=== PATIENT | female | born 1955 ===

== ENCOUNTER 2017-01-07 09:30 | Emergency (ER) | payer MEDICAID ==
[2017-01-07 09:34] VITALS: BP 140/77; PULSE 55; TEMP 97; O2SAT 95
[2017-01-07 09:35] VITALS: BMI 26.4
--- NOTE | 2017-01-07 10:49 | ED PDOC ---
HPI: General Adult Time Seen by Provider: 01/07/17 09:45 Chief Complaint (Nursing): Abdominal Pain Chief Complaint (Provider): right sided rib pain History Per: Patient History/Exam Limitations: no limitations Onset/Duration Of Symptoms: Days (x 3) Have you had recent travel within the past 21 days to any of the following countries: [place], [place], [place] or [place]?: No Additional Complaint(s): Love Agarwal is a 61 year old female, with a previous medical history of osteoporosis, who presents to the ED with complaints of right sided lower rib pain which started 3 days ago after hearing a crack while hugging a child. Patient denies any chest pain, shortness of breath or radiation of the pain. Patient states to taking pain relief medication which provided no relief. No numbness, tingles, weakness. PMD: none provided Past Medical History Reviewed: Historical Data, Nursing Documentation, Vital Signs Vital Signs: Last Vital Signs Temp 97 F L 01/07/17 09:33 Pulse 55 L 01/07/17 09:33 Resp BP 140/77 01/07/17 09:33 Pulse Ox 95 01/07/17 10:51 - Medical History PMH: Depression, HTN, Osteoporosis - Surgical History Surgical History: Cholecystectomy - Family History Family History: States: Unknown Family Hx - Social History Current smoker - smoking cessation education provided: No Alcohol: None Drugs: Denies - Home Medications Home Medications: Ambulatory Orders Medication Instructions Recorded Calcium Carbonate [Calcium] PO DAILY 04/17/14 amLODIPine [Norvasc] 2.5 mg PO DAILY 04/17/14 Naproxen [Naprosyn] 500 mg PO Q12 #14 tablet 05/11/16 - Allergies Allergies/Adverse Reactions: Allergies Allergy/AdvReac Type Severity Reaction Status Date / Time No Known Allergies Allergy Verified 01/07/17 10:08 Review of Systems Constitutional: Negative for: Weakness Cardiovascular: Negative for: Chest Pain, Palpitations, Orthopnea, Edema Respiratory: Negative for: Cough, Shortness of Breath Gastrointestinal: Negative for: Nausea, Vomiting, Abdominal Pain Genitourinary Female: Negative for: Dysuria Musculoskeletal: Positive for: Other (right sided rib pain ). Negative for: Neck Pain, Shoulder Pain, Arm Pain Skin: Negative for: Rash Neurological: Negative for: Weakness Physical Exam - Reviewed Nursing Documentation Reviewed: Yes Vital Signs Reviewed: Yes - Physical Exam Appears: Positive for: Non-toxic, No Acute Distress Head Exam: Positive for: ATRAUMATIC, NORMAL INSPECTION, NORMOCEPHALIC Skin: Positive for: Normal Color, Warm, DRY Neck: Positive for: Normal, Painless ROM, Supple Cardiovascular/Chest: Positive for: Regular Rate, Rhythm, Chest Non Tender, Other (tenderness to the right lower rib laterally mild; no deformity) Respiratory: Positive for: CNT, Normal Breath Sounds Gastrointestinal/Abdominal: Positive for: Normal Exam, Bowel Sounds, Soft. Negative for: Tenderness Back: Positive for: Normal Inspection. Negative for: L CVA Tenderness, R CVA Tenderness Extremity: Positive for: Normal ROM. Negative for: Tenderness, Pedal Edema, Deformity Neurologic/Psych: Positive for: Alert, Oriented - ECG O2 Sat by Pulse Oximetry: 95 (RA) Pulse Ox Interpretation: Normal - Radiology X-Ray: Interpreted by Me, Viewed By Me X-Ray Interpretation: No Acute Disease - Progress ED Course And Treament: 1129: Stable. AAOx3. Pain free. Tolerated PO. Fu with pcp. Medical Decision Making Medical Decision Making: Initial Impression: rib pain Initial Plan: * x-ray right ribs * toradol 15 mg IM * reevaluation Scribe Attestation: Documented by Rosa Echols, acting as a scribe for Nicholas Beyer MD. Provider Scribe Attestation: All medical record entries made by the Scribe were at my direction and personally dictated by me. I have reviewed the chart and agree that the record accurately reflects my personal performance of the history, physical exam, medical decision making, and the department course for this patient. I have also personally directed, reviewed, and agree with the discharge instructions and disposition. Disposition - Clinical Impression Clinical Impression: Rib contusion - Patient ED Disposition Is Patient to be Admitted: No Counseled Patient/Family Regarding: Studies Performed, Diagnosis, Need For Followup - Disposition Referrals: [facility] [Outside] - 01/08/17 Disposition: Routine/Home Disposition Time: 11:31 Condition: STABLE Additional Instructions: Return if not better in 3 days. Instructions: Rib Contusion (ED) Forms: [facility] (Lao) Print Language: YORUBA
--- NOTE | 2017-01-07 14:35 | RAD ---
PROCEDURE: Radiographs of the Chest and Right Ribs. HISTORY: pain COMPARISON: 05/11/2016 TECHNIQUE: Frontal radiograph of the chest and multiple oblique radiographs of the right ribs were obtained. FINDINGS: RIGHT RIBS: No fracture or focal lesion visualized. LUNGS: Clear. PLEURA: No pneumothorax or pleural fluid. CARDIOVASCULAR: Normal sized heart. No pulmonary vascular congestion. OTHER FINDINGS: None. IMPRESSION: Unremarkable radiographs of the chest and right ribs. No right rib fracture. BMD changes compared to the prior study Concordant results with the preliminary interpretation rendered by the emergency department physician procedure.
== END 2017-01-07 11:50 | disposition home or self-care (01) ==
LOC: H.ER 09:30
DX: S20.219A Contusion of unspecified front wall of thorax, initial encounter (principal); X50.9XXA Other and unspecified overexertion or strenuous movements or postures, initial encounter; Y92.89 Other specified places as the place of occurrence of the external cause; I10 Essential (primary) hypertension

== ENCOUNTER 2017-09-14 15:24 | Inpatient (IN) | payer MEDICAID, OTHER ==
[2017-09-14 15:24] VITALS: BMI 26.4
--- NOTE | 2017-09-14 17:20 | ED PDOC ---
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) - Chief Complaint Chief Complaint: Weakness, Numbness, Difficulty walking - Onset Date: 09/12/17 Onset: Days (2+ approximate) - Timing Timing: Currently Symptomatic - Location Locate right:: Upper extremity, Lower extremity - Severity of pain Maximum severity:: Moderate Severity Current: Moderate - Associated Symptoms Associated symptoms:: Numbness, other (myalgia) - Exacerbated by Exacerbated by:: Postition Change, Walking - Relieved by Relieved by:: Nothing - TPA Positive for Contraindication: Yes Reason tPA is not being Administered: >48hrs of symptoms, NIHSS <4 - Notes: Notes:: 61yo female hx HTN, DM, under rheum workup at [facility] presents c/o R sided numbness , painful joints and difficulty ambulating, states her R leg/foot has lost power. Denies headache, change in speech, or falls, admits to intermittent blurry vision for several weeks. Does not take ASA daily. Rheum put her on ? medications last month, states takes 6pills/wk. NIHSS Stroke Scale - Date/Time Evaluation Performed Date Performed: 09/14/17 Time Performed: 17:05 When Was NIHSS Performed: Baseline - How Severe is the Stroke Level of Consciousness: 0=Alert LOC to Questions: 0=Both comments correct LOC to commands: 0=Obeys both correctly Best Gaze: 0=Normal Visual: 0=No visual loss Facial: 0=Normal Motor Arm - Left: 0=No drift Motor Arm - Right: 1=Drift noted before 10 sec Motor Leg - Left: 0=No drift Motor Leg - Right: 1=Drift before 5 sec Limb Ataxia: 1=Present Upper or Lower Sensory: 0=Normal Best Language: 0=No aphasia Dysarthia: 0=Normal articulation Extinction & Inattention (Neglect): 0=Normal, no object Score: 3 rTPA Inclusion/Exclusion - Refusal of Treatment Patient Refused Treatment: No - Inclusion Criteria for Altepase Patient is 18 years or Older: Yes The Clinical Diagnosis of Ischemic Stroke That is Causing a Potentially Disabling Neurological Deficit: No Time of Onset is Well Established to be Less Than 270 Minute Before Treatment Would Begin: No Risk/Benefit Discussed With Patient/Family Member Present: No - Exclusion Criteria for Altepase Uncontrolled Hypertension at Time of Treatment (Systolic BP above 185 or Diastolic BP above 110 mmHg): No - Warning to TPA With Conditions Following Conditions Weighed Against Anticipated Benefit: Yes Condition: Stroke Serevity Too Mild Past Medical History Reviewed: Historical Data, Nursing Documentation, Vital Signs Vital Signs: Last Vital Signs Temp 97.7 F 09/14/17 16:07 Pulse 68 09/14/17 16:07 Resp 18 09/14/17 16:07 BP 150/74 09/14/17 16:07 Pulse Ox 99 09/14/17 16:07 - Medical History PMH: Depression, Diabetes, HTN, Osteoporosis Other PMH: per paperwork from [facility] +JENNIE, +rheumatoid disease, +elev ESR - Surgical History Surgical History: Cholecystectomy Other surgeries: L arm accident - Family History Family History: States: Unknown Family Hx - Social History Current smoker - smoking cessation education provided: No Alcohol: None - Home Medications Home Medications: Ambulatory Orders Medication Instructions Recorded Dicyclomine [Bentyl] 10 mg PO Q8 PRN 09/14/17 Hydroxychloroquine Sulfate 200 mg PO Q12 09/14/17 [Plaquenil] Methotrexate [Methotrexate] 6 tab PO MO 09/14/17 Omeprazole [Omeprazole] 40 mg PO DAILY 09/14/17 Valsartan/Hydrochlorothiazide 1 tab PO DAILY 09/14/17 [Diovan Hct 160-25 mg Tablet] amLODIPine [Norvasc] 10 mg PO DAILY 09/14/17 metFORMIN [glucOPHAGE] 500 mg PO BID 09/14/17 - Allergies Allergies/Adverse Reactions: Allergies Allergy/AdvReac Type Severity Reaction Status Date / Time No Known Allergies Allergy Verified 01/07/17 10:08 Review of Systems ROS Statement: Except As Marked, All Systems Reviewed And Found Negative Constitutional: Negative for: Fever, Chills Cardiovascular: Negative for: Chest Pain, Palpitations Respiratory: Negative for: Cough, Shortness of Breath Gastrointestinal: Negative for: Nausea, Vomiting Genitourinary Female: Negative for: Dysuria, Frequency Musculoskeletal: Positive for: Shoulder Pain, Arm Pain, Back Pain, Hand Pain, Leg Pain, Foot Pain. Negative for: Neck Pain Skin: Negative for: Rash, Lesions, Jaundice Neurological: Positive for: Weakness, Numbness, Incoordination, Dizziness. Negative for: Change in Speech, Altered Mental Status, Headache Psych: Positive for: Anxiety, Depression. Negative for: Suicidal ideation Physical Exam - Reviewed Nursing Documentation Reviewed: Yes Vital Signs Reviewed: Yes - Physical Exam Appears: Positive for: Well, Non-toxic, No Acute Distress Head Exam: Positive for: ATRAUMATIC, NORMAL INSPECTION, NORMOCEPHALIC Skin: Positive for: Normal Color, Warm, DRY Eye Exam: Positive for: EOMI, Normal appearance, PERRL ENT: Positive for: Normal ENT Inspection Neck: Positive for: Normal, Painless ROM Cardiovascular/Chest: Positive for: Regular Rate, Rhythm Respiratory: Positive for: CNT, Normal Breath Sounds Gastrointestinal/Abdominal: Positive for: Normal Exam, Bowel Sounds, Soft Back: Positive for: Normal Inspection Extremity: Positive for: Normal ROM Neurologic/Psych: Positive for: Alert, Oriented, Motor/Sensory Deficits (R side mild weakness upper ext 4/5 lower ext 4/5, RUE chronic weakness/tendon contracture digits 2/3/4) - Laboratory Results Result Diagrams: 09/15/17 04:15 09/15/17 04:15 - ECG ECG: Positive for: Interpreted By [place] ECG Rhythm: Positive for: Sinus Bradycardia, Nonspecific Changes Rate: 58 O2 Sat by Pulse Oximetry: 99 Pulse Ox Interpretation: Normal Medical Decision Making Medical Decision Making: not a code stroke candidate given symptoms >2 days +risk factors given DM, HTN, rheum disease CT Accession No. : [id number] Patient Name / ID : ALDAIR NETTLES / [id number] Exam Date : 09/14/2017 17:32:50 ( Approved ) Study Comment : Sex / Age : F / 61Y Creator : SOLEDAD CHU Dictator : Chief Investment Officer : A R Specialist : SOLEDAD CHU Approver2 : Report Date : 09/14/2017 18:24:00 My Comment : [facility] Division of Radiology [address] [place] [address] Tel. no. Patient Name: THO JACKSON Pt. Address: [address] [place] [address] Rec #: [id number] [place] [address]: Haroon Nieves DO, III Pt CELL Order Location: [facility] : 1955 Female Age: 61 Order #: [id number] Reason for exam: R side weakness, pain CT Scan HEAD W/O CONTRAST Exam Date: 09/14/17 This imaging exam was performed at [facility] EXAM: CT Head Without Intravenous Contrast EXAM DATE/TIME: 09/14/2017 5:09 PM CLINICAL HISTORY: 61 years old, female; Signs and symptoms; Weakness, extremity; Right; Additional info: R side weakness, pain TECHNIQUE: Axial computed tomography images of the head/brain without intravenous contrast. All CT scans at this facility use one or more dose reduction techniques, viz.: automated exposure control; ma/kV adjustment per patient size (including targeted exams where dose is matched to indication; i.e. head); or iterative reconstruction technique. Coronal and sagittal reformatted images were created and reviewed. COMPARISON: There are no prior studies for comparison. FINDINGS: Brain: Ventricles are normal in size and configuration. There is no midline shift. There are no intra-axial or extra-axial mass lesions or areas of hemorrhage. There are no abnormal fluid collections. Rossi-white differentiation is maintained. Ventricles: See above. Bones: Cranial vault is intact. Soft tissues: unremarkable Sinuses: There is no acute sinusitis. Ears and mastoids: Middle ears and mastoids are unremarkable Orbits: There are no acute orbital abnormalities. 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
[2017-09-14 17:31] LABS: BASO % 0.6 % (0.0-2.0); EOS % 0.3 % (0.0-4.0); HEMOGLOBIN 11.6 g/dL (12.0-16.0); LYMPH # 1.9 K/uL (1.0-4.3); LYMPH % 34.5 % (20.0-40.0); MEAN CELL VOLUME 70.5 fl (81.0-99.0); MEAN CORPUSCULAR HEMOGLOBIN 22.1 pg (27.0-31.0); MEAN CORPUSCULAR HGB CONC 31.4 g/dL (33.0-37.0); MEAN PLATELET VOLUME 9.7 fl (7.2-11.7); MONO # 0.4 K/uL (0.0-0.8); MONO % 7.4 % (0.0-10.0); NEUT # 3.1 K/uL (1.8-7.0); NEUT % 57.2 % (50.0-75.0); NRBC % 1.1 % (0.0-0.0); RBC 5.23 Mil/uL (3.80-5.20); RED CELL DISTRIBUTION WIDTH 16.5 % (11.5-14.5); WHITE BLOOD COUNT 5.5 K/uL (4.8-10.8)
[2017-09-14 17:53] LABS: PARTIAL THROMBOPLASTIN TIME 24.5 Seconds (25.6-37.1); PROTHROMBIN TIME 11.3 Seconds (9.8-13.1)
[2017-09-14 18:04] LABS: ALB/GLOB RATIO 1.3 (1.0-2.1); ALBUMIN 4.5 g/dL (3.5-5.0); ALT/SGPT 34 U/L (9-52); AST/SGOT 26 U/L (14-36); BLOOD UREA NITROGEN 19 mg/dl (7-17); CALCIUM 10.1 mg/dL (8.4-10.2); GFR AFRICAN-AMERICAN > 60; GFR NON-AFRICAN AMERICAN > 60; HDL CHOLESTEROL 71 MG/DL (30-70)
[2017-09-14 18:15] LABS: LDL CHOLESTEROL 67 mg/dL (0-129)
--- NOTE | 2017-09-14 18:25 | CT ---
EXAM: CT Head Without Intravenous Contrast EXAM DATE/TIME: 09/14/2017 5:09 PM CLINICAL HISTORY: 61 years old, female; Signs and symptoms; Weakness, extremity; Right; Additional info: R side weakness, pain TECHNIQUE: Axial computed tomography images of the head/brain without intravenous contrast. All CT scans at this facility use one or more dose reduction techniques, viz.: automated exposure control; ma/kV adjustment per patient size (including targeted exams where dose is matched to indication; i.e. head); or iterative reconstruction technique. Coronal and sagittal reformatted images were created and reviewed. COMPARISON: There are no prior studies for comparison. FINDINGS: Brain: Ventricles are normal in size and configuration. There is no midline shift. There are no intra-axial or extra-axial mass lesions or areas of hemorrhage. There are no abnormal fluid collections. Rossi-white differentiation is maintained. Ventricles: See above. Bones: Cranial vault is intact. Soft tissues: unremarkable Sinuses: There is no acute sinusitis. Ears and mastoids: Middle ears and mastoids are unremarkable Orbits: There are no acute orbital abnormalities. There is an old right lamina papyracea fracture IMPRESSION: No acute intracranial abnormality
[2017-09-14] MEDS: Sodium Chloride 0.9% 1,000 ML IV SCH (19:30)
--- NOTE | 2017-09-14 20:13 | CP.PCM.HP ---
History of Present Illness - History of Present Illness History of Present Illness: 61 yo female with history of DM2, HTN and RA came in complaining of pain, numbness and weakness of the right leg since 3 weeks ago. Denied trauma or injury. Denied headache or slurring of speech. Present on Admission - Present on Admission Any Indicators Present on Admission: No History of DVT/PE: No History of Uncontrolled Diabetes: No Urinary Catheter: No Decubitus Ulcer Present: No Review of Systems - Review of Systems All systems: reviewed and no additional remarkable complaints except (aside from those mentioned above, 14 point system review were negative by me) Past Patient History - Tetanus Immunizations Tetanus Immunization: Unknown - Past Social History Smoking Status: Never Smoked Alcohol: None Drugs: Denies - CARDIAC Hx Hypertension: Yes - MUSCULOSKELETAL/RHEUMATOLOGICAL Hx Osteoporosis: Yes - PSYCHIATRIC Hx Depression: Yes - SURGICAL HISTORY Hx Cholecystectomy: Yes - ANESTHESIA Hx Anesthesia: Yes Hx Anesthesia Reactions: No Meds Allergies/Adverse Reactions: Allergies Allergy/AdvReac Type Severity Reaction Status Date / Time No Known Allergies Allergy Verified 01/07/17 10:08 Physical Exam - Constitutional Appears: No Acute Distress - Head Exam Head Exam: ATRAUMATIC - Eye Exam Eye Exam: absent: Scleral icterus - ENT Exam ENT Exam: Mucous Membranes Moist - Neck Exam Neck exam: Negative for: Meningismus - Respiratory Exam Respiratory Exam: absent: Rales, Rhonchi, Wheezes, Respiratory Distress - Cardiovascular Exam Cardiovascular Exam: REGULAR RHYTHM, +S1, +S2 - GI/Abdominal Exam GI & Abdominal Exam: Soft. absent: Tenderness - Rectal Exam Rectal Exam: Deferred - Extremities Exam Extremities exam: Negative for: calf tenderness, pedal edema - Back Exam Back exam: absent: tenderness - Neurological Exam Neurological exam: Alert, Oriented x3 - Psychiatric Exam Psychiatric exam: Normal Affect - Skin Skin Exam: Dry, Intact Results - Vital Signs Recent Vital Signs: Last Vital Signs Temp 98 F 09/14/17 19:29 Pulse 58 L 09/14/17 19:47 Resp 18 09/14/17 19:29 BP 156/76 H 09/14/17 19:29 Pulse Ox 99 09/14/17 19:47 - Labs Result Diagrams: 09/14/17 17:20 09/14/17 17:20 Labs: Laboratory Results - last 24 hr 09/14/17 09/14/17 09/14/17 17:20 17:20 17:20 WBC 5.5 RBC 5.23 H Hgb 11.6 L Hct 36.9 MCV 70.5 L MCH 22.1 L MCHC 31.4 L RDW 16.5 H Plt Count 221 MPV 9.7 Neut % (Auto) 57.2 Lymph % (Auto) 34.5 [place] % (Auto) 7.4 Eos % (Auto) 0.3 Baso % (Auto) 0.6 Neut # (Auto) 3.1 Lymph # (Auto) 1.9 [place] # (Auto) 0.4 Eos # (Auto) 0.0 Baso # (Auto) 0.0 ESR 17 PT 11.3 INR 1.0 APTT 24.5 L Sodium 145 Potassium 3.7 Chloride 102 Carbon Dioxide 27 Anion Gap 20 BUN 19 H Creatinine 0.9 Est GFR ( Amer) > 60 Est GFR (Non-Af Amer) > 60 Random Glucose 129 H Calcium 10.1 Total Bilirubin 0.6 AST 26 ALT 34 Alkaline Phosphatase 45 Troponin I < 0.0120 Total Protein 8.0 Albumin 4.5 Globulin 3.5 Albumin/Globulin Ratio 1.3 Triglycerides 64 Cholesterol 171 LDL Cholesterol Direct 67 HDL Cholesterol 71 H Assessment & Plan - Assessment and Plan (Free Text) Assessment: 61 yo female with history of DM2, HTN and RA came in complaining of pain, numbness and weakness of the right leg since 3 weeks ago. Denied trauma or injury. Denied headache or slurring of speech. 1. Right Lower extremity weakness denied bladder or rectal incontinence place on observation in telemetry CT scan of head: negative MRI of LS spine 2. DM2 accuchek ACHS with low Lispro coverage Metformin 500mg PO BID HgA1C, BMP in am 3. RA continue Hydroxychloroquine and Methotrexate 4. HTN BP stable continue Amlodipine and Valsartan/HCTZ
[2017-09-15 05:28] LABS: BASO % 0.9 % (0.0-2.0); EOS % 0.7 % (0.0-4.0); HEMOGLOBIN 10.1 g/dL (12.0-16.0); LYMPH # 2.1 K/uL (1.0-4.3); LYMPH % 54.5 % (20.0-40.0); MEAN CELL VOLUME 70.6 fl (81.0-99.0); MEAN CORPUSCULAR HEMOGLOBIN 22.4 pg (27.0-31.0); MEAN CORPUSCULAR HGB CONC 31.7 g/dL (33.0-37.0); MEAN PLATELET VOLUME 9.5 fl (7.2-11.7); MONO # 0.4 K/uL (0.0-0.8); MONO % 11.7 % (0.0-10.0); NEUT # 1.2 K/uL (1.8-7.0); NEUT % 32.2 % (50.0-75.0); NRBC % 0.4 % (0.0-0.0); RBC 4.5 Mil/uL (3.80-5.20); RED CELL DISTRIBUTION WIDTH 16.5 % (11.5-14.5); WHITE BLOOD COUNT 3.8 K/uL (4.8-10.8)
[2017-09-15 05:40] LABS: BLOOD UREA NITROGEN 18 mg/dl (7-17); GFR AFRICAN-AMERICAN > 60; GFR NON-AFRICAN AMERICAN > 60
[2017-09-15] MEDS ORDERED: Pneumococcal 23-Valent Vaccine IM ONE (06:00)
--- NOTE | 2017-09-15 08:12 | RAD ---
HISTORY: Code Stroke COMPARISON: Chest radiograph with right ribs 12/30/2016. FINDINGS: LUNGS: No active pulmonary disease. PLEURA: No significant pleural effusion identified, no pneumothorax apparent. CARDIOVASCULAR: Mild cardiomegaly versus technical magnification with the latter favored given frontal technique. OSSEOUS STRUCTURES: No significant abnormalities. VISUALIZED UPPER ABDOMEN: Normal. OTHER FINDINGS: None. IMPRESSION: No interval acute cardiopulmonary disease appreciated.
[2017-09-15] MEDS: Pantoprazole 40 mg EC Tab PO SCH (08:37)
[2017-09-15] MEDS: Enoxaparin 40 mg Syringe SC SCH (08:39)
--- NOTE | 2017-09-15 09:26 | CARD ---
APPROVED REPORT EKG Measurement Heart [id number] <Conclusion> Sinus bradycardia Otherwise normal ECG
--- NOTE | 2017-09-15 12:25 | MRI ---
PROCEDURE: MR LUMBAR SPINE WITHOUT CONTRAST HISTORY: weakness and pain on right LE COMPARISON: None available. TECHNIQUE: Multiecho multiplanar sequences were performed through the lumbar spine without the use of intravenous contrast. FINDINGS: Normal curvature. Schmorl's nodes are identified depression the upper endplates at L2 through L5 vertebral bodies with likely underlying chronic minimal compression fractures affecting the same vertebral bodies which are lower in height than L1 in all cases. No suspicious matter signal changes are related however. Diffuse intervertebral disc desiccation is appreciated with preserved disc heights noted. Conus medullaris terminates at L1, normal in intrinsic signal with visualized prevertebral paraspinal soft tissues diffusely unremarkable. Overall, the central canal appears widely capacious. T12-L1: No disc herniation, spinal canal stenosis or neural foraminal narrowing. Symmetric facet joint degenerative change minimally encroaches the bilateral neural foramina and lateral recesses without significant stenosis. L1-2: No disc herniation identified or generalized central canal or neural foraminal stenosis. However, minimal disc bulging is appreciated as well as facet joint arthropathy encroaching the bilateral lateral recesses somewhat. L2-3: No disc herniation identified or generalized central canal or neural foraminal stenosis. However, minimal disc bulging is appreciated as well as facet joint arthropathy encroaching the bilateral lateral recesses somewhat. L3-4: No disc herniation identified or generalized central canal or neural foraminal stenosis. However, minimal disc bulging is appreciated as well as facet joint arthropathy encroaching the bilateral lateral recesses somewhat. L4-5: No disc herniation identified or generalized central canal or neural foraminal stenosis. However, minimal disc bulging is appreciated as well as facet joint arthropathy encroaching the bilateral lateral recesses somewhat. L5-S1: No disc herniation, spinal canal stenosis or neural foraminal narrowing. Limited facet joint degenerative changes are identified. OTHER FINDINGS: None. IMPRESSION: Patient benefits from a widely capacious central canal with no generalized central canal stenosis appreciated throughout the exam although multilevel facet joint degenerative arthropathy is diffuse a combines with limited disc bulging encroaching the bilateral lateral recesses with the exception of L5-S1 where no significant encroachment occurs.
--- NOTE | 2017-09-15 12:45 | CP.PCM.PN ---
Subjective - Date & Time of Evaluation Date of Evaluation: 09/15/17 Time of Evaluation: 11:30 - Subjective Subjective: Pt has RUE and RLE weakness no cognitive deficit denies headache no visual change no CP no SOB no abd pain Objective - Vital Signs/Intake and Output Vital Signs (last 24 hours): Temp Pulse Resp BP Pulse Ox 98 F 50 L 20 156/78 H 96 09/15/17 12:00 09/15/17 12:00 09/15/17 12:00 09/15/17 12:00 09/15/17 12:00 - Medications Medications: Current Medications Amlodipine Besylate (Norvasc) 10 mg PO DAILY [facility] Last Admin: 09/15/17 08:37 Dose: 10 mg Dicyclomine HCl (Bentyl) 10 mg PO Q8 PRN PRN Reason: abdominal cramps Docusate Sodium (Colace) 100 mg PO BID PRN PRN Reason: Constipation Enoxaparin Sodium (Lovenox) 40 mg SC DAILY [facility] PRN Reason: Protocol Last Admin: 09/15/17 08:39 Dose: 40 mg Hydroxychloroquine Sulfate (Plaquenil) 200 mg PO Q12 [facility] PRN Reason: Protocol Last Admin: 09/15/17 08:37 Dose: 200 mg Sodium Chloride (Sodium Chloride 0.9%) 1,000 mls @ 100 mls/hr IV .Q10H [facility] Last Admin: 09/14/17 19:30 Dose: 100 mls/hr Metformin HCl (Glucophage) 500 mg PO BID [facility] Last Admin: 09/15/17 08:36 Dose: 500 mg Methotrexate (Methotrexate) 6 mg PO MO [facility] PRN Reason: Protocol Pantoprazole Sodium (Protonix Ec Tab) 40 mg PO DAILY [facility] Last Admin: 09/15/17 08:37 Dose: 40 mg - Labs Labs: 09/15/17 04:15 09/15/17 04:15 PT 11.3 Seconds (9.8-13.1) 09/14/17 17:20 INR 1.0 (0.9-1.2) 09/14/17 17:20 APTT 24.5 Seconds (25.6-37.1) L 09/14/17 17:20 - Constitutional Appears: Non-toxic, No Acute Distress - Head Exam Head Exam: NORMAL INSPECTION, NORMOCEPHALIC - Eye Exam Eye Exam: EOMI, Normal appearance Pupil Exam: NORMAL ACCOMODATION - ENT Exam ENT Exam: Mucous Membranes Moist, Normal External Ear Exam - Neck Exam Neck Exam: Full ROM. absent: Meningismus - Respiratory Exam Respiratory Exam: NORMAL BREATHING PATTERN. absent: Respiratory Distress - Cardiovascular Exam Cardiovascular Exam: REGULAR RHYTHM, +S1, +S2 - GI/Abdominal Exam GI & Abdominal Exam: Soft, Normal Bowel Sounds. absent: Tenderness - Extremities Exam Extremities Exam: Full ROM, Normal Capillary Refill. absent: Calf Tenderness, Pedal Edema - Back Exam Back Exam: Full ROM. absent: CVA tenderness (L), CVA tenderness (R) - Neurological Exam Neurological Exam: Alert, Awake, Oriented x3 Neuro motor strength exam: Left Upper Extremity: 5, Right Upper Extremity: 3, Left Lower Extremity: 5, Right Lower Extremity: 3 - Psychiatric Exam Psychiatric exam: Normal Affect, Normal Mood - Skin Skin Exam: Dry, Normal Color, Warm Assessment and Plan - Assessment and Plan (Free Text) Assessment: 61 yo female with history of DM2, HTN and RA came in complaining of right lower ext weakness x 3 days. Hx of right knee pain for many months but weakness is new. Denied headache or slurring of speech. 1. Right Lower extremity weakness r/o Acute CVA start ASA 325 mg daily LDL : 60 , no statin DVT proph with Lovenox MRI of Brain Carotid Sono Doppler US of LE Neurology consulted- discussed case with Dr Abreu - rec CTA of Head and Neck PT/OT consult 2. DM2 accuchek ACHS with low Lispro coverage d/c Metformin as pt will need contrast 3. RA continue Hydroxychloroquine and Methotrexate 4. HTN BP stable continue Amlodipine and Valsartan/HCTZ DVT proph: Lovenox
[2017-09-15 12:51] LABS: HDL CHOLESTEROL 51 MG/DL (30-70)
--- NOTE | 2017-09-15 12:56 | CP.PCM.CON ---
History of Present Illness - History of Present Illness History of Present Illness: 61 yr old woman with pmh of DM, HTN, currently being evaluated by rheumatology at [facility], who is presenting with right sided numbness and right foot weakness for over 24 hours presenting to [facility]. she complains of R sided numbness, painful joints and difficulty ambulating, states her R leg/foot has lost power. Denies headache, change in speech, or falls, admits to intermittent blurry vision for several weeks. Does not take ASA daily. Rheum put her on ?medications last month, states takes 6pills/wk. on exam: aaox3. pupils 3mm-2mm with light. EOMI. 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 There is also a mild left facial droop. Speech is fluent she can name and repeat. Gait is hemiparetic, favors the left leg, but no ataxia. Past Patient History - Tetanus Immunizations Tetanus Immunization: Unknown - Past Medical History & Family History Past Medical History?: Yes - Past Social History Smoking Status: Former Smoker - CARDIAC Hx Hypertension: Yes - PULMONARY Hx Respiratory Disorders: No - NEUROLOGICAL Hx Neurological Disorder: No - HEENT Hx HEENT Problems: No - RENAL Hx Chronic Kidney Disease: No - ENDOCRINE/METABOLIC Hx Diabetes Mellitus Type 2: Yes - MUSCULOSKELETAL/RHEUMATOLOGICAL Hx Arthritis: Yes Hx Falls: No Hx Osteoporosis: Yes - PSYCHIATRIC Hx Depression: Yes Hx Substance Use: No - SURGICAL HISTORY Hx Cholecystectomy: Yes - ANESTHESIA Hx Anesthesia: Yes Hx Anesthesia Reactions: No Meds Allergies/Adverse Reactions: Allergies Allergy/AdvReac Type Severity Reaction Status Date / Time No Known Allergies Allergy Verified 01/07/17 10:08 - Medications Medications: Current Medications Amlodipine Besylate (Norvasc) 10 mg PO DAILY [facility] Last Admin: 09/15/17 08:37 Dose: 10 mg Dicyclomine HCl (Bentyl) 10 mg PO Q8 PRN PRN Reason: abdominal cramps Docusate Sodium (Colace) 100 mg PO BID PRN PRN Reason: Constipation Enoxaparin Sodium (Lovenox) 40 mg SC DAILY [facility] PRN Reason: Protocol Last Admin: 09/15/17 08:39 Dose: 40 mg Hydroxychloroquine Sulfate (Plaquenil) 200 mg PO Q12 [facility] PRN Reason: Protocol Last Admin: 09/15/17 08:37 Dose: 200 mg Sodium Chloride (Sodium Chloride 0.9%) 1,000 mls @ 100 mls/hr IV .Q10H [facility] Last Admin: 09/14/17 19:30 Dose: 100 mls/hr Metformin HCl (Glucophage) 500 mg PO BID [facility] Last Admin: 09/15/17 08:36 Dose: 500 mg Methotrexate (Methotrexate) 6 mg PO MO [facility] PRN Reason: Protocol Pantoprazole Sodium (Protonix Ec Tab) 40 mg PO DAILY [facility] Last Admin: 09/15/17 08:37 Dose: 40 mg Results - Vital Signs Recent Vital Signs: Last Vital Signs Temp 98 F 09/15/17 12:00 Pulse 50 L 09/15/17 12:00 Resp 20 09/15/17 12:00 BP 156/78 H 09/15/17 12:00 Pulse Ox 96 09/15/17 12:00 - Labs Result Diagrams: 09/15/17 04:15 09/15/17 04:15 Labs: Laboratory Results - last 24 hr 09/14/17 09/14/17 09/14/17 17:20 17:20 17:20 WBC 5.5 RBC 5.23 H Hgb 11.6 L Hct 36.9 MCV 70.5 L MCH 22.1 L MCHC 31.4 L RDW 16.5 H Plt Count 221 MPV 9.7 Neut % (Auto) 57.2 Lymph % (Auto) 34.5 [place] % (Auto) 7.4 Eos % (Auto) 0.3 Baso % (Auto) 0.6 Neut # (Auto) 3.1 Lymph # (Auto) 1.9 [place] # (Auto) 0.4 Eos # (Auto) 0.0 Baso # (Auto) 0.0 ESR 17 PT INR APTT Sodium 145 Potassium 3.7 Chloride 102 Carbon Dioxide 27 Anion Gap 20 BUN 19 H Creatinine 0.9 Est GFR ( Amer) > 60 Est GFR (Non-Af Amer) > 60 POC Glucose (mg/dL) Random Glucose 129 H Hemoglobin A1c 5.9 Calcium 10.1 Total Bilirubin 0.6 AST 26 ALT 34 Alkaline Phosphatase 45 Troponin I < 0.0120 Total Protein 8.0 Albumin 4.5 Globulin 3.5 Albumin/Globulin Ratio 1.3 Triglycerides 64 Cholesterol 171 LDL Cholesterol Direct 67 HDL Cholesterol 71 H Blood Type Blood Type Confirm Antibody Screen BBK History Checked 09/14/17 09/14/17 09/14/17 17:20 17:33 21:32 WBC RBC Hgb Hct MCV MCH MCHC RDW Plt Count MPV Neut % (Auto) Lymph % (Auto) [place] % (Auto) Eos % (Auto) Baso % (Auto) Neut # (Auto) Lymph # (Auto) [place] # (Auto) Eos # (Auto) Baso # (Auto) ESR PT 11.3 INR 1.0 APTT 24.5 L Sodium Potassium Chloride Carbon Dioxide Anion Gap BUN Creatinine Est GFR ( Amer) Est GFR (Non-Af Amer) POC Glucose (mg/dL) 100 Random Glucose Hemoglobin A1c Calcium Total Bilirubin AST ALT Alkaline Phosphatase Troponin I Total Protein Albumin Globulin Albumin/Globulin Ratio Triglycerides Cholesterol LDL Cholesterol Direct HDL Cholesterol Blood Type A POSITIVE Blood Type Confirm Antibody Screen Negative BBK History Checked No verified bt 09/14/17 09/14/17 09/15/17 22:39 23:00 04:15 WBC 3.8 L RBC 4.50 Hgb 10.1 L Hct 31.8 L MCV 70.6 L MCH 22.4 L MCHC 31.7 L RDW 16.5 H Plt Count 201 MPV 9.5 Neut % (Auto) 32.2 L Lymph % (Auto) 54.5 H [place] % (Auto) 11.7 H Eos % (Auto) 0.7 Baso % (Auto) 0.9 Neut # (Auto) 1.2 L Lymph # (Auto) 2.1 [place] # (Auto) 0.4 Eos # (Auto) 0.0 Baso # (Auto) 0.0 ESR PT INR APTT Sodium Potassium Chloride Carbon Dioxide Anion Gap BUN Creatinine Est GFR ( Amer) Est GFR (Non-Af Amer) POC Glucose (mg/dL) 94 Random Glucose Hemoglobin A1c Calcium Total Bilirubin AST ALT Alkaline Phosphatase Troponin I Total Protein Albumin Globulin Albumin/Globulin Ratio Triglycerides Cholesterol LDL Cholesterol Direct HDL Cholesterol Blood Type Blood Type Confirm A POSITIVE Antibody Screen BBK History Checked 09/15/17 09/15/17 04:15 05:15 WBC RBC Hgb Hct MCV MCH MCHC RDW Plt Count MPV Neut % (Auto) Lymph % (Auto) [place] % (Auto) Eos % (Auto) Baso % (Auto) Neut # (Auto) Lymph # (Auto) [place] # (Auto) Eos # (Auto) Baso # (Auto) ESR PT INR APTT Sodium 141 Potassium 4.0 Chloride 104 Carbon Dioxide 24 Anion Gap 17 BUN 18 H Creatinine 0.7 Est GFR ( Amer) > 60 Est GFR (Non-Af Amer) > 60 POC Glucose (mg/dL) 140 H Random Glucose 101 Hemoglobin A1c Calcium 9.0 Total Bilirubin AST ALT Alkaline Phosphatase Troponin I Total Protein Albumin Globulin Albumin/Globulin Ratio Triglycerides Cholesterol LDL Cholesterol Direct HDL Cholesterol Blood Type Blood Type Confirm Antibody Screen BBK History Checked - Imaging and Cardiology CT scan - head Status: Image reviewed by me, Report reviewed by me (Normal ct head no old strokes no hemorrhages. ) Assessment & Plan - Assessment and Plan (Free Text) Assessment: 61 yr old woman with baseline autoimmune disease, who may be having new ischemic process. PlaN: 1. MRI Brain without contrast 2. CTA 3. ECHo 4. Doppler already completed 5. lipid profile 6. PT 7. aspirin [address] Abreu.
[2017-09-15] MEDS ORDERED: Iodixanol 320 MG/ML 100 ML BOTTLE IV ONE (13:00)
[2017-09-15] MEDS ORDERED: Sodium Chloride 0.9% 100 ML ONE (13:00)
[2017-09-15 13:02] LABS: LDL CHOLESTEROL 60 mg/dL (0-129)
[2017-09-15] MEDS: Sodium Chloride 0.9% 1,000 ML IV SCH ×2 (13:30→14:35)
--- NOTE | 2017-09-15 13:46 | CARD ---
APPROVED REPORT EXAM: Two-dimensional and M-mode echocardiogram with Doppler and color Doppler. Other Information Quality : GoodRhythm : Bradycardia INDICATION CVA/TIA 2D DIMENSIONS IVSd1.25 (0.7-1.1cm)LVDd4.54 (3.9-5.9cm) LVOT Diameter1.99 (1.8-2.4cm)PWd1.08 (0.7-1.1cm) IVSs1.80 (0.8-1.2cm)LVDs2.92 (2.5-4.0cm) FS (%) 35.7 %PWs1.20 (0.8-1.2cm) M-Mode DIMENSIONS Left Atrium (MM)4.50 (2.5-4.0cm)IVSd0.80 (0.7-1.1cm) Aortic Root3.37 (2.2-3.7cm)LVDd5.92 (4.0-5.6cm) Aortic Cusp Exc.2.06 (1.5-2.0cm)PWd1.08 (0.7-1.1cm) IVSs1.29 cmFS (%) 40 % LVDs3.53 (2.0-3.8cm)PWs1.83 cm Mitral Valve MV E Iiruoaya38.7cm/sMV DECEL [id number] A Yajeseqy75.4cm/s MV FUM88mdC/A ratio1.2MVA (PHT)3.21cm2 TDI Lateral E' Peak V11.98cm/sMedial E' Peak V8.07cm/sE/Lateral E'6.7 E/Medial E'10.0 Pulmonary Valve PV Peak Ayqorwho04.1cm/s LEFT VENTRICLE The left ventricle is normal size. There is normal left ventricular wall thickness. Left ventricle systolic function is normal. The Ejection Fraction is 60-65%. There is normal LV segmental wall motion. Transmitral Doppler flow pattern is Grade I-abnormal relaxation pattern. RIGHT VENTRICLE The right ventricle is normal size. There is normal right ventricular wall thickness. The right ventricular systolic function is normal. ATRIA The left atrium size is normal. The right atrium size is normal. AORTIC VALVE The aortic valve is normal in structure. No aortic regurgitation is present. There is no aortic valvular stenosis. MITRAL VALVE The mitral valve is normal in structure. There is no evidence of mitral valve prolapse. There is no mitral valve stenosis. There is no mitral valve regurgitation noted. TRICUSPID VALVE The tricuspid valve is normal in structure. There is no tricuspid valve regurgitation noted. PULMONIC VALVE The pulmonary valve is normal in structure. There is no pulmonic valvular regurgitation. GREAT VESSELS The aortic root is normal in size. The IVC is normal in size and collapses >50% with inspiration. PERICARDIAL EFFUSION The pericardium appears normal. <Conclusion> The left ventricle is normal size. There is normal left ventricular wall thickness. There is normal LV segmental wall motion. Left ventricle systolic function is normal. The Ejection Fraction is 60-65%. Transmitral Doppler flow pattern is Grade I-abnormal relaxation pattern.
--- NOTE | 2017-09-15 14:00 | US ---
PROCEDURE: Duplex ultrasound of the carotid and vertebral arteries. HISTORY: CVA COMPARISON: None available. TECHNIQUE: Grayscale and duplex Doppler evaluation of the cervical carotid and vertebral arteries were performed. The common carotid, carotid bifurcations and cervical ICA and proximal ECA were evaluated. The vertebral arteries were evaluated for gross patency and direction. FINDINGS: RIGHT CAROTID ARTERIES: Common Carotid Artery: Intimal thickening is present Maximal flow velocity of 80.7 cm/s. Carotid Bifurcation: Normal. Internal Carotid Artery:Heterogeneous plaque formation. Maximal flow velocity of 117.4 cm/s. External Carotid Artery (proximal branches): Normal. Maximal flow velocity of 69.9 cm/s. ICA/CCA Ratio: 1.7 LEFT CAROTID ARTERIES: Common Carotid Artery: Intimal thickening is present Maximal flow velocity of 97.6 cm/s. Carotid Bifurcation: Normal. Internal Carotid Artery:Heterogeneous plaque formation. Maximal flow velocity of 124.5 cm/s. External Carotid Artery (proximal branches): Normal. Maximal flow velocity of 89.8 cm/s. ICA/CCA Ratio: 1.3 VERTEBRAL ARTERIES: Right Vertebral Artery: Patent. Antegrade flow. Left Vertebral Artery: Patent. Antegrade flow. OTHER FINDINGS: Subcentimeter cystic nodule right thyroid lobe. IMPRESSION: Right ICA degree of stenosis: Less than 50% Left ICA degree of stenosis: Less than 50% Reference Internal Carotid Artery (ICA) Peak Systolic Velocity (PSV) for above: 1. Less than 50% stenosis less than 125 cm/s peak systolic velocity 2. 50-69% stenosis 125-230cm/s peak systolic velocity 3. Greater than 70% but less than near occlusion greater than 230 cm/s peak systolic velocity
--- NOTE | 2017-09-15 14:33 | CT ---
PROCEDURE: CT Angiography of the Brain. HISTORY: stroke COMPARISON: None available. TECHNIQUE: CT angiography of the intracranial arteries was performed. Coronal and sagittal maximum intensity projection reformated images were generated. This CT exam was performed using one or more of the following dose reduction techniques: Automated exposure control, adjustment of the mA and/or kV according to patient size, and/or use of iterative reconstruction technique. FINDINGS: INTERNAL CEREBRAL ARTERIES: Unremarkable. The skull base, petrous, cavernous and supraclinoid segments are bilaterally widely patent. ANTERIOR CEREBRAL ARTERIES: Unremarkable. A1 and A2 segments are widely patent. Smaller distal branches unremarkable, as visualized. MIDDLE CEREBRAL ARTERIES: Unremarkable. M1 and M2 segments are widely patent. Perisylvian branches grossly symmetric. POSTERIOR CIRCULATION: Basilar Artery: Unremarkable. Distal Vertebral Arteries: Unremarkable. Left dominant vertebrobasilar circulation identified. Posterior Cerebral Arteries: Unremarkable. Posterior Inferior Cerebellar Arteries: Unremarkable. NECK CTA: Common Carotid arteries: The bilateral common carotid appear widely patent from their origins to their bifurcations with no significant stenosis appreciated. No evidence to suggest common carotid artery dissection. Internal Carotid arteries: No significant stenosis is appreciated throughout the cervical internal carotid artery segments bilaterally and there is no evidence of dissection either. External Carotid arteries: Appear unremarkable bilaterally. Vertebral arteries: The bilateral vertebral arteries appear normal in caliber from their origins to their junction with the basilar artery. No significant stenosis or definite pattern of dissection. ANEURYSM/ VASCULAR MALFORMATIONS: None. OTHER FINDINGS: Incidental note is made of a dilated main pulmonary artery, measuring up to 3.7 cm and image 270 series 2 compatible with pulmonary artery hypertension. Further, right thyroid lobe cysts and nodules are identified infrequently, all appearing under 1 cm size. IMPRESSION: Unremarkable CT angiography of the brain and neck as discussed above. Incidental pulmonary artery hypertension identified. A few small right thyroid lobe cysts and nodules are identified for which follow-up ultrasonography can be performed for additional characterization.
--- NOTE | 2017-09-15 17:20 | MRI ---
PROCEDURE: MRI BRAIN WITHOUT CONTRAST HISTORY: stroke COMPARISON: Unenhanced head CT 09/14/2017 TECHNIQUE: Multiplanar, multisequence MR images of the brain were obtained without intravenous contrast enhancement. FINDINGS: HEMORRHAGE: None DWI: No evidence of an acute or early subacute infarction. BRAIN PARENCHYMA: Good corticomedullary differentiation is seen. Limited diffuse expansion of the ventriculosulcal and cisternal spaces is appreciated with white matter lucency compatible with diffuse cerebral atrophy and chronic microangiopathy. No suspicious extra-axial fluid collection is identified and the midline brain anatomy appears grossly nonfocal as imaged. There is no mass effect throughout. VENTRICLES: Unremarkable. No hydrocephalus. CRANIUM: Unremarkable. ORBITS: Grossly unremarkable. PARANASAL SINUSES/MASTOIDS: Clear VASCULAR SYSTEM: Skull base flow voids intact. OTHER FINDINGS: None. IMPRESSION: Limited diffuse cerebral atrophy and chronic microangiopathy are reiterated. No mass is identified or suspicious extra-axial fluid collection in the midline brain and appears diffusely unremarkable nevertheless. Posterior fossa contents remain unremarkable including the brainstem. No MR evidence of an acute or subacute brain infarction at this time.
[2017-09-15] MEDS: Insulin Lispro (humaLOG) 100 Units/ml Inj SC SCH (21:41)
[2017-09-16] MEDS: Sodium Chloride 0.9% 1,000 ML IV SCH ×2 (00:06→17:27)
[2017-09-16] MEDS: Insulin Lispro (humaLOG) 100 Units/ml Inj SC SCH ×4 (06:44→22:00)
[2017-09-16] MEDS: Enoxaparin 40 mg Syringe SC SCH (08:51)
[2017-09-16] MEDS: Pantoprazole 40 mg EC Tab PO SCH (08:52)
--- NOTE | 2017-09-16 10:19 | CP.PCM.PN ---
Subjective - Date & Time of Evaluation Date of Evaluation: 09/16/17 Time of Evaluation: 10:15 - Subjective Subjective: Pt states that her right LE weakness is better than when she came in denies any other new neuro deficit pt is alert, oriented denies THOMAS, no dizzines no CP no SOB discussed test results Objective - Vital Signs/Intake and Output Vital Signs (last 24 hours): Temp Pulse Resp BP Pulse Ox 98.2 F 54 L 18 151/72 H 95 09/16/17 08:00 09/16/17 09:38 09/16/17 08:00 09/16/17 09:38 09/16/17 08:00 - Medications Medications: Current Medications Amlodipine Besylate (Norvasc) 10 mg PO DAILY [facility] Last Admin: 09/16/17 09:38 Dose: 10 mg Aspirin (Aspirin) 325 mg PO DAILY [facility] Last Admin: 09/16/17 08:56 Dose: 325 mg Dicyclomine HCl (Bentyl) 10 mg PO Q8 PRN PRN Reason: abdominal cramps Docusate Sodium (Colace) 100 mg PO BID PRN PRN Reason: Constipation Enoxaparin Sodium (Lovenox) 40 mg SC DAILY [facility] PRN Reason: Protocol Last Admin: 09/16/17 08:51 Dose: 40 mg Hydroxychloroquine Sulfate (Plaquenil) 200 mg PO Q12 [facility] PRN Reason: Protocol Last Admin: 09/16/17 08:52 Dose: 200 mg Sodium Chloride (Sodium Chloride 0.9%) 1,000 mls @ 100 mls/hr IV .Q10H [facility] Last Admin: 09/16/17 00:06 Dose: 100 mls/hr Insulin Human Lispro (Humalog) 0 units SC ACHS [facility] PRN Reason: Protocol Last Admin: 09/16/17 06:44 Dose: Not Given Methotrexate (Methotrexate) 6 mg PO MO [facility] PRN Reason: Protocol Pantoprazole Sodium (Protonix Ec Tab) 40 mg PO DAILY [facility] Last Admin: 09/16/17 08:52 Dose: 40 mg - Labs Labs: 09/15/17 04:15 09/15/17 04:15 PT 11.3 Seconds (9.8-13.1) 09/14/17 17:20 INR 1.0 (0.9-1.2) 09/14/17 17:20 APTT 24.5 Seconds (25.6-37.1) L 09/14/17 17:20 - Constitutional Appears: Non-toxic, No Acute Distress - Head Exam Head Exam: NORMAL INSPECTION, NORMOCEPHALIC - Eye Exam Eye Exam: EOMI, Normal appearance Pupil Exam: NORMAL ACCOMODATION - ENT Exam ENT Exam: Mucous Membranes Moist, Normal External Ear Exam - Neck Exam Neck Exam: Full ROM. absent: Meningismus - Respiratory Exam Respiratory Exam: NORMAL BREATHING PATTERN. absent: Respiratory Distress - Cardiovascular Exam Cardiovascular Exam: REGULAR RHYTHM, +S1, +S2 - GI/Abdominal Exam GI & Abdominal Exam: Soft, Normal Bowel Sounds. absent: Tenderness - Extremities Exam Extremities Exam: Full ROM, Normal Capillary Refill. absent: Calf Tenderness, Pedal Edema - Back Exam Back Exam: Full ROM. absent: CVA tenderness (L), CVA tenderness (R) - Neurological Exam Neurological Exam: Alert, Awake, Oriented x3 Neuro motor strength exam: Right and Left Upper Extremity: 4/5, Left Lower Extremity: 5/5, Right Lower Extremity: 3-4/5 - Psychiatric Exam Psychiatric exam: Normal Affect, Normal Mood - Skin Skin Exam: Dry, Normal Color, Warm Assessment and Plan - Assessment and Plan (Free Text) Assessment: 61 yo female with history of DM2, HTN and RA came in complaining of right lower ext weakness x 3 days. She has some baseline bilat hand weakness due to her RA snd has Hx of right knee pain for many months but RLE weakness is new. Denies headache or slurring of speech. MRI of Brain : no acute nor subacute CVA, diffuse atrophy MRI of L spine: no generalized canal stenosis, degenerative arthropathy 1. Right Lower extremity weakness prob sec to ? Neuropathy Acute CVA ruled out cont ASA DVT proph with Lovenox Carotid Sono: no significant stenosis CTA of head and neck : neg Neurology consulted- discussed case with Dr Abreu - rec PT/OT PT/OT consulted- rec TCU however pt is uninsured -plan to do therapy as inpatient for now - pt lives in 2nd floor walk up will check for B12, Folate, RPR TSH normal ECHO; normal LV function 2. DM2 accuchek ACHS with low Lispro coverage d/c Metformin as pt received contrast 3. RA continue Hydroxychloroquine and Methotrexate 4. HTN BP stable continue Amlodipine and Valsartan/HCTZ 5. Sinus Bradycardia seen on monitor HR in the 50's pt denies any sxs no hx of syncope ECHO; normal, no Pulm HTN 6. Thyroid Nodules seen on CT - Thyroid sonogram - TFT normal DVT proph: Lovenox
--- NOTE | 2017-09-16 11:37 | CP.PCM.PN ---
Subjective - Date & Time of Evaluation Date of Evaluation: 09/16/17 Time of Evaluation: 11:28 - Subjective Subjective: Ms. Locke was seen and examined at the bedside. She is alert, oriented in all spheres. She denies any headache, dizziness, lightheadedness, nausea, or vomiting. She is able to answer all questions and follow simple commands. MRI of the brain showed limited diffuse cerebral atrophy and chronic microangiopathy. No mass is identified or suspicious extra- axial fluid collection in the midline brain and appears diffusely unremarkabl. Posterior fossa contents remain unremarkable including the brainstem. No acute or subacute brain infarction at this time.CTA of the head and neck showed incidental dilated main pulmonary artery measuring 3.7 cm compatible with pulmonary hypertension. Right thyroid lobe cyst and nodules are identified infrequently all appearing under 1 cm. Echocardiogram showed normal LV segmental wall motion. EF-60-65%.Carotid duplex showed right and left ICA stenosis degrees are less than 50%. There was no untoward events overnight. Objective - Vital Signs/Intake and Output Vital Signs (last 24 hours): Temp Pulse Resp BP Pulse Ox 98.2 F 54 L 18 151/72 H 95 09/16/17 08:00 09/16/17 09:38 09/16/17 08:00 09/16/17 09:38 09/16/17 08:00 - Medications Medications: Current Medications Amlodipine Besylate (Norvasc) 10 mg PO DAILY [facility] Last Admin: 09/16/17 09:38 Dose: 10 mg Aspirin (Aspirin) 325 mg PO DAILY [facility] Last Admin: 09/16/17 08:56 Dose: 325 mg Dicyclomine HCl (Bentyl) 10 mg PO Q8 PRN PRN Reason: abdominal cramps Docusate Sodium (Colace) 100 mg PO BID PRN PRN Reason: Constipation Enoxaparin Sodium (Lovenox) 40 mg SC DAILY [facility] PRN Reason: Protocol Last Admin: 09/16/17 08:51 Dose: 40 mg Hydroxychloroquine Sulfate (Plaquenil) 200 mg PO Q12 [facility] PRN Reason: Protocol Last Admin: 09/16/17 08:52 Dose: 200 mg Sodium Chloride (Sodium Chloride 0.9%) 1,000 mls @ 100 mls/hr IV .Q10H [facility] Last Admin: 09/16/17 00:06 Dose: 100 mls/hr Insulin Human Lispro (Humalog) 0 units SC ACHS NADIR PRN Reason: Protocol Last Admin: 09/16/17 06:44 Dose: Not Given Methotrexate (Methotrexate) 2.5 mg PO ONCE ONE PRN Reason: Protocol Stop: 09/16/17 11:31 Pantoprazole Sodium (Protonix Ec Tab) 40 mg PO DAILY [facility] Last Admin: 09/16/17 08:52 Dose: 40 mg - Labs Labs: 09/15/17 04:15 09/15/17 04:15 PT 11.3 Seconds (9.8-13.1) 09/14/17 17:20 INR 1.0 (0.9-1.2) 09/14/17 17:20 APTT 24.5 Seconds (25.6-37.1) L 09/14/17 17:20 - Constitutional Appears: No Acute Distress - Head Exam Head Exam: NORMAL INSPECTION - Neurological Exam Neurological Exam: Alert, Awake, Oriented x3 Neuro motor strength exam: Left Upper Extremity: 3, Right Upper Extremity: 5, Left Lower Extremity: 3, Right Lower Extremity: 5 Additional comments: and right leg is 3/5, proximal is 4/5, with what appears to be partial right foot drop. There is also a mild left facial droop. Speech is fluent she can name and repeat. Assessment and Plan (1) Weakness of one side of body Assessment & Plan: Case discussed with Dr. Abreu, continue all current medical, physical, and occupational therapies. There is no new recommendations from neurology. Status: Acute
[2017-09-16 14:31] LABS: T4 6.42 ug/dl (5.5-11.0)
[2017-09-16 14:45] LABS: T3 1.11 nmol/L (1.49-2.60)
[2017-09-17 00:42] VITALS: RESP 18
[2017-09-17 05:42] LABS: HEMOGLOBIN 10.8 g/dL (12.0-16.0); MEAN CELL VOLUME 70.7 fl (81.0-99.0); MEAN CORPUSCULAR HEMOGLOBIN 22.3 pg (27.0-31.0); MEAN CORPUSCULAR HGB CONC 31.5 g/dL (33.0-37.0); RBC 4.86 Mil/uL (3.80-5.20); RED CELL DISTRIBUTION WIDTH 17.2 % (11.5-14.5); WHITE BLOOD COUNT 3.5 K/uL (4.8-10.8)
[2017-09-17 06:15] LABS: BLOOD UREA NITROGEN 16 mg/dl (7-17); CALCIUM 9.8 mg/dL (8.4-10.2); GFR AFRICAN-AMERICAN > 60; GFR NON-AFRICAN AMERICAN > 60
[2017-09-17] MEDS: Insulin Lispro (humaLOG) 100 Units/ml Inj SC SCH ×2 (06:31→12:00)
[2017-09-17 08:18] VITALS: BP 132/74; PULSE 50; TEMP 98.3; O2SAT 97
[2017-09-17] MEDS: Enoxaparin 40 mg Syringe SC SCH (08:52)
[2017-09-17] MEDS: Pantoprazole 40 mg EC Tab PO SCH (08:52)
--- NOTE | 2017-09-17 09:50 | US ---
HISTORY: evaluation of thyroid nodule seen in the CTA TECHNIQUE: Sonographic evaluation of the thyroid gland. COMPARISON: None. FINDINGS: RIGHT LOBE: Measures 5.8 x 1.8 x 1.8 cm. Normal echotexture and flow. Nodules: 1. Lateral upper pole hypoechoic mixed cystic and solid nodule measuring 1.1 x 0.6 x 0.6 cm 2. Anterolateral midpole predominantly cystic nodule with peripheral solid components measuring 0.5 x 0.5 x 0.4 cm 3. Posteromedial lower pole taller than wide isoechoic nodule with hypoechoic hypervascular rim measuring 0.9 x 0.6 x 0.7 cm LEFT LOBE: Measures 4.7 x 1.5 x 1.3 cm. Normal echotexture and flow. Nodules: None ISTHMUS: Measures 0.5 cm. Normal echotexture and flow. Nodules: None OTHER FINDINGS: None . IMPRESSION: Multiple sub centimeter right thyroid nodules. The lower pole nodule measures 0.9 cm, but has suspicious features.
--- NOTE | 2017-09-17 09:57 | CP.PCM.DIS ---
Provider - Provider Date of Admission: 09/15/17 21:52 Attending physician: Jb Azul MD Consults: neurology consult PT consult Time Spent in preparation of Discharge (in minutes): 15 Hospital Course - Lab Results Lab Results: Most Recent Lab Values WBC 3.5 K/uL (4.8-10.8) L 09/17/17 04:45 RBC 4.86 Mil/uL (3.80-5.20) 09/17/17 04:45 Hgb 10.8 g/dL (12.0-16.0) L 09/17/17 04:45 Hct 34.3 % (34.0-47.0) 09/17/17 04:45 MCV 70.7 fl (81.0-99.0) L 09/17/17 04:45 MCH 22.3 pg (27.0-31.0) L 09/17/17 04:45 MCHC 31.5 g/dL (33.0-37.0) L 09/17/17 04:45 RDW 17.2 % (11.5-14.5) H 09/17/17 04:45 Plt Count 211 K/uL (130-400) 09/17/17 04:45 MPV 9.5 fl (7.2-11.7) 09/15/17 04:15 Neut % (Auto) 32.2 % (50.0-75.0) L 09/15/17 04:15 Lymph % (Auto) 54.5 % (20.0-40.0) H 09/15/17 04:15 [place] % (Auto) 11.7 % (0.0-10.0) H 09/15/17 04:15 Eos % (Auto) 0.7 % (0.0-4.0) 09/15/17 04:15 Baso % (Auto) 0.9 % (0.0-2.0) 09/15/17 04:15 Neut # (Auto) 1.2 K/uL (1.8-7.0) L 09/15/17 04:15 Lymph # (Auto) 2.1 K/uL (1.0-4.3) 09/15/17 04:15 [place] # (Auto) 0.4 K/uL (0.0-0.8) 09/15/17 04:15 Eos # (Auto) 0.0 K/uL (0.0-0.7) 09/15/17 04:15 Baso # (Auto) 0.0 K/uL (0.0-0.2) 09/15/17 04:15 ESR 17 mm/hr (0-30) 09/14/17 17:20 PT 11.3 Seconds (9.8-13.1) 09/14/17 17:20 INR 1.0 (0.9-1.2) 09/14/17 17:20 APTT 24.5 Seconds (25.6-37.1) L 09/14/17 17:20 Sodium 143 mmol/l (132-148) 09/17/17 04:45 Potassium 4.6 MMOL/L (3.6-5.0) 09/17/17 04:45 Chloride 100 mmol/L (98-107) 09/17/17 04:45 Carbon Dioxide 30 mmol/L (22-30) 09/17/17 04:45 Anion Gap 18 (10-20) 09/17/17 04:45 BUN 16 mg/dl (7-17) 09/17/17 04:45 Creatinine 0.7 mg/dl (0.7-1.2) 09/17/17 04:45 Est GFR ( Amer) > 60 09/17/17 04:45 Est GFR (Non-Af Amer) > 60 09/17/17 04:45 POC Glucose (mg/dL) 141 mg/dL (65-110) H 09/17/17 05:41 Random Glucose 120 mg/dL (65-105) H 09/17/17 04:45 Hemoglobin A1c 5.9 % (4.2-6.5) 09/14/17 17:20 Calcium 9.8 mg/dL (8.4-10.2) 09/17/17 04:45 Total Bilirubin 0.6 mg/dl (0.2-1.3) 09/14/17 17:20 AST 26 U/L (14-36) 09/14/17 17:20 ALT 34 U/L (9-52) 09/14/17 17:20 Alkaline Phosphatase 45 U/L (38-126) 09/14/17 17:20 Troponin I < 0.0120 ng/mL (0.00-0.120) 09/14/17 17:20 Total Protein 8.0 G/DL (6.3-8.2) 09/14/17 17:20 Albumin 4.5 g/dL (3.5-5.0) 09/14/17 17:20 Globulin 3.5 gm/dL (2.2-3.9) 09/14/17 17:20 Albumin/Globulin Ratio 1.3 (1.0-2.1) 09/14/17 17:20 Triglycerides 74 mg/DL (0-149) 09/15/17 12:20 Cholesterol 138 mg/dL (0-199) 09/15/17 12:20 LDL Cholesterol Direct 60 mg/dL (0-129) 09/15/17 12:20 HDL Cholesterol 51 MG/DL (30-70) 09/15/17 12:20 Vitamin B12 401 pg/mL (239-931) 09/17/17 04:45 Thyroxine (T4) 6.42 ug/dl (5.5-11.0) 09/16/17 13:40 Total T3 1.11 nmol/L (1.49-2.60) L 09/16/17 13:40 TSH 3rd Generation 1.41 mIU/ML (0.46-4.68) 09/16/17 13:40 Blood Type A POSITIVE 09/14/17 17:33 Blood Type Confirm A POSITIVE 09/14/17 23:00 Antibody Screen Negative 09/14/17 17:33 BBK History Checked No verified bt 09/14/17 17:33 - Hospital Course Hospital Course: 61 yo female with history of DM2, HTN and RA came in complaining of right lower ext weakness x 3 days. She has some baseline bilateral hand weakness due to her RA and has Hx of right knee pain for many months but RLE weakness is new. Denies headache or slurring of speech.Patient was admitted to telemetry and neurology was consulted Ct head and MRI of Brain showed no acute nor subacute CVA, diffuse atrophy. CVA was ruled out MRI of L spine: perfoprmed and showed no generalized canal stenosis only degenerative arthropathy Most likely her LE pain related to radiculopathy .PT consulted for gait training .Patient today feeling better. Able to ambulate more than 200 feet with no assistance but still with some RLe weakness will discharge patient home .Outpatient PT Follow up with her PMD and sound mixer 1.Right Lower extremity weakness prob sec to ? Neuropathy Acute CVA ruled out cont ASA XCt head , MRI head , CTa neck , carotid doppler -- normal Neurology consulted- will recommend PT as outpatient TSH normal 2. DM2 resume Metformin outpatient 3. RA continue Hydroxychloroquine and Methotrexate follow up with her sound mixer 4. HTN BP stable continue Amlodipine and Valsartan/HCTZ 5. Sinus Bradycardia asymptomatic HR in the 50's pt denies any sxs no hx of syncope ECHO; normal, no Pulm HTN 6. Thyroid Nodules seen on CT Thyroid sonograms shows small nodules RSH normal follow up with PMD as outpatient Discharge Exam - Head Exam Head Exam: ATRAUMATIC, NORMAL INSPECTION, NORMOCEPHALIC - Eye Exam Eye Exam: EOMI, Normal appearance, PERRL Pupil Exam: NORMAL ACCOMODATION - ENT Exam ENT Exam: Mucous Membranes Moist, Normal Exam - Neck Exam Neck exam: Full Rom, Normal Inspection - Respiratory Exam Respiratory Exam: Clear to PA & Lateral, NORMAL BREATHING PATTERN. absent: Rales, Rhonchi, Wheezes - Cardiovascular Exam Cardiovascular Exam: REGULAR RHYTHM, RRR, +S1, +S2. absent: JVD - GI/Abdominal Exam GI & Abdominal Exam: Normal Bowel Sounds, Soft. absent: Distended, Guarding, Rebound, Tenderness - Rectal Exam Rectal Exam: Deferred - Extremities Exam Extremities exam: full ROM, normal capillary refill, normal inspection, pedal pulses present - Back Exam Back exam: NORMAL INSPECTION - Neurological Exam Neurological exam: Alert, CN II-XII Intact, Oriented x3, Reflexes Normal - Psychiatric Exam Psychiatric exam: Normal Affect, Normal Mood - Skin Skin Exam: Dry, Intact, Normal Color, Warm Discharge Plan - Discharge Medications Prescriptions: Folic Acid 1 mg PO DAILY #30 tab - Follow Up Plan Condition: STABLE Disposition: HOME/ ROUTINE Patient education suggested?: Yes Additional Instructions: follow up with PMD and rheumotologist PT as outpatient
--- NOTE | 2017-09-17 10:39 | CP.PCM.PN ---
Subjective - Date & Time of Evaluation Date of Evaluation: 09/17/17 Time of Evaluation: 10:37 - Subjective Subjective: Ms. Locke was seen and examined at the bedside. She remains alert, oriented in all spheres. She denies any headache, dizziness, blurred vision, but claims of LE weakness, seen and evaluated by physical therapy. She is able to ambulate within her room in steady gait. She is able to follow simple commands. Thyroid US showed multiple subcentimeter right thyroid nodules. The lower nodule measures 0.9 cm, but has suspicious features. There was no untoward events overnight. Objective - Vital Signs/Intake and Output Vital Signs (last 24 hours): Temp Pulse Resp BP Pulse Ox 98.3 F 50 L 18 132/74 97 09/17/17 08:00 09/17/17 08:51 09/17/17 08:00 09/17/17 08:51 09/17/17 08:00 - Medications Medications: Current Medications Amlodipine Besylate (Norvasc) 10 mg PO DAILY [facility] Last Admin: 09/17/17 08:51 Dose: 10 mg Aspirin (Aspirin) 325 mg PO DAILY [facility] Last Admin: 09/17/17 08:56 Dose: 325 mg Dicyclomine HCl (Bentyl) 10 mg PO Q8 PRN PRN Reason: abdominal cramps Docusate Sodium (Colace) 100 mg PO BID PRN PRN Reason: Constipation Enoxaparin Sodium (Lovenox) 40 mg SC DAILY [facility] PRN Reason: Protocol Last Admin: 09/17/17 08:52 Dose: 40 mg Folic Acid (Folic Acid) 1 mg PO DAILY [facility] Last Admin: 09/17/17 08:52 Dose: 1 mg Hydroxychloroquine Sulfate (Plaquenil) 200 mg PO Q12 [facility] PRN Reason: Protocol Last Admin: 09/17/17 08:51 Dose: 200 mg Insulin Human Lispro (Humalog) 0 units SC ACHS [facility] PRN Reason: Protocol Last Admin: 09/17/17 06:31 Dose: Not Given Pantoprazole Sodium (Protonix Ec Tab) 40 mg PO DAILY [facility] Last Admin: 09/17/17 08:52 Dose: 40 mg - Labs Labs: 09/17/17 04:45 09/17/17 04:45 PT 11.3 Seconds (9.8-13.1) 09/14/17 17:20 INR 1.0 (0.9-1.2) 09/14/17 17:20 APTT 24.5 Seconds (25.6-37.1) L 09/14/17 17:20 - Constitutional Appears: No Acute Distress - Head Exam Head Exam: NORMAL INSPECTION - Neurological Exam Neurological Exam: Alert, Awake Neuro motor strength exam: Left Upper Extremity: 5, Right Upper Extremity: 5, Left Lower Extremity: 4, Right Lower Extremity: 4 Additional comments: Neurological unchanged from previous examination. Assessment and Plan (1) Weakness of one side of body Assessment & Plan: Case discussed with Dr. Abreu, continue all current medical regimen. May follow up with her PMD including thyroid nodules for appropriate referral. Recommend outpatient physical therapy as an outpatient. Status: Acute
[2017-09-17 13:44] LABS: FOLATE 18.7 ng/mL
== END 2017-09-17 12:11 | disposition home or self-care (01) | DRG 74 ==
LOC: H.ER 15:24 → H.ERHOLD 19:16 → H.TEL 22:30 → OBSVTOIN 09-15 21:52
PROC: 3E0234Z Introduction of Serum, Toxoid and Vaccine into Muscle, Percutaneous Approach (ICD-10-PCS; principal; 2017-09-15)
DX: E11.40 Type 2 diabetes mellitus with diabetic neuropathy, unspecified (principal); G81.91 Hemiplegia, unspecified affecting right dominant side; I27.20 Pulmonary hypertension, unspecified; M54.10 Radiculopathy, site unspecified; I10 Essential (primary) hypertension; F32.9 Major depressive disorder, single episode, unspecified; M81.0 Age-related osteoporosis without current pathological fracture; M06.9 Rheumatoid arthritis, unspecified; Z87.891 Personal history of nicotine dependence; R29.810 Facial weakness; M21.371 Foot drop, right foot; R00.1 Bradycardia, unspecified; E04.2 Nontoxic multinodular goiter; I65.23 Occlusion and stenosis of bilateral carotid arteries; Z23 Encounter for immunization

== ENCOUNTER 2018-08-08 22:03 | Emergency (ER) | payer MEDICAID, OTHER ==
[2018-08-08 22:04] VITALS: BMI 26.4
[2018-08-08 22:07] VITALS: PULSE 68; RESP 18; TEMP 98.3; O2SAT 99
[2018-08-08] MEDS ORDERED: Sodium Chloride 0.9% 1,000 ML IV STA (22:31)
[2018-08-08 23:12] LABS: VENOUS BLOOD GAS BASE EXCESS 3.2 mmol/L (0.0-2.0); VENOUS BLOOD GAS PCO2 37 mmHg (40-60); VENOUS BLOOD GAS PO2 46 mm/Hg (30-55); VENOUS BLOOD PH 7.47 (7.32-7.43)
--- NOTE | 2018-08-08 23:29 | ED PDOC ---
HPI: Abdomen Time Seen by Provider: 08/08/18 22:23 Chief Complaint (Nursing): Abdominal Pain Chief Complaint (Provider): Abdominal Pain History Per: Patient History/Exam Limitations: no limitations Onset/Duration Of Symptoms: Days (x 3) Current Symptoms Are (Timing): Still Present Location Of Pain/Discomfort: Diffuse Quality Of Discomfort: "Pain" Associated Symptoms: Fever, Chills, Vomiting, Diarrhea Additional Complaint(s): 62 year old female with a history of diabetes, hypertension and arthritis presents to the ED with diffuse, cramping abdominal pain associated with nonbilious nonbloody vomiting and water nonbloody diarrhea for the last three days. She also reports a subjective fever and chills. Patient believes that pain is due to a meal of shrimp and rice that she ate the same day. Since, she is unable to tolerate PO, liquid and food. Patient states she was unable to take her medications due to symptoms. Denies sick contacts, recent travel, and urinary symptoms. Offers no other complaints. PMD: Dr. Newman Past Medical History Reviewed: Historical Data, Nursing Documentation, Vital Signs Vital Signs: Last Vital Signs Temp 98.3 F 08/08/18 22:04 Pulse 68 08/08/18 22:04 Resp 18 08/08/18 22:04 BP 112/67 08/08/18 22:04 Pulse Ox 99 08/08/18 22:04 - Medical History PMH: Arthritis, Depression, Diabetes, HTN, Osteoporosis Denies: Chronic Kidney Disease - Surgical History Surgical History: Cholecystectomy Other surgeries: LUE surgery due to trauma - Family History Family History: States: Unknown Family Hx - Social History Current smoker - smoking cessation education provided: No Alcohol: None Drugs: Denies - Home Medications Home Medications: Ambulatory Orders Medication Instructions Recorded RX: Dicyclomine [Bentyl] 10 mg PO Q8 PRN 09/14/17 RX: Hydroxychloroquine Sulfate 200 mg PO Q12 09/14/17 [Plaquenil] RX: Methotrexate 6 tab PO MO 09/14/17 RX: Omeprazole 40 mg PO DAILY 09/14/17 RX: Valsartan/Hydrochlorothiazide 1 tab PO DAILY 09/14/17 [Diovan Hct 160-25 mg Tablet] RX: amLODIPine [Norvasc] 10 mg PO DAILY 09/14/17 RX: metFORMIN [glucOPHAGE] 500 mg PO BID 09/14/17 RX: Folic Acid 1 mg PO DAILY #30 tab 09/17/17 Ondansetron [Zofran] 4 mg PO Q6H PRN #4 tab 08/09/18 - Allergies Allergies/Adverse Reactions: Allergies Allergy/AdvReac Type Severity Reaction Status Date / Time No Known Allergies Allergy Verified 01/07/17 10:08 Review of Systems ROS Statement: Except As Marked, All Systems Reviewed And Found Negative Constitutional: Positive for: Fever, Chills Gastrointestinal: Positive for: Vomiting, Abdominal Pain, Diarrhea. Negative for: Constipation, Melena, Hematochezia, Hematemesis Genitourinary Female: Negative for: Dysuria, Frequency, Incontinence, Hematuria Physical Exam - Reviewed Nursing Documentation Reviewed: Yes Vital Signs Reviewed: Yes - Physical Exam Appears: Positive for: No Acute Distress Head Exam: Positive for: ATRAUMATIC, NORMAL INSPECTION, NORMOCEPHALIC Skin: Positive for: Warm, Dry Eye Exam: Positive for: EOMI, PERRL ENT: Positive for: Other (dry mucous membranes) Neck: Positive for: Painless ROM, Supple Cardiovascular/Chest: Positive for: Regular Rate, Rhythm. Negative for: Murmur Respiratory: Positive for: Normal Breath Sounds. Negative for: Respiratory Distress Gastrointestinal/Abdominal: Positive for: Soft, Tenderness (diffuse). Negative for: Mass, Distended, Guarding, Rebound Back: Positive for: Normal Inspection. 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 N egative for: Motor/Sensory Deficits - Laboratory Results Result Diagrams: 08/08/18 23:40 08/08/18 23:40 Lab Results: pO2 46 mm/Hg (30-55) 08/08/18 23:08 VBG pH 7.47 (7.32-7.43) H 08/08/18 23:08 VBG pCO2 37 mmHg (40-60) L 08/08/18 23:08 VBG HCO3 27.1 mmol/L 08/08/18 23:08 VBG Total CO2 28.0 mmol/L (22-28) 08/08/18 23:08 VBG O2 Sat (Calc) 85.7 % (40-65) H 08/08/18 23:08 VBG Base Excess 3.2 mmol/L (0.0-2.0) H 08/08/18 23:08 VBG Potassium 3.2 mmol/L (3.6-5.2) L 08/08/18 23:08 Sodium 135.0 mmol/L (132-148) 08/08/18 23:08 Chloride 103.0 mmol/L (98-107) 08/08/18 23:08 Glucose 143 mg/dL (65-105) H 08/08/18 23:08 Lactate 1.2 mmol/L (0.7-2.1) 08/08/18 23:08 FiO2 21.0 % 08/08/18 23:08 - ECG O2 Sat by Pulse Oximetry: 99 (RA) Pulse Ox Interpretation: Normal Medical Decision Making Medical Decision Makin:31 Impression: abdominal pain, vomiting and diarrhea Differential diagnoses include but are not limited to: Gastroenteritis, dehydration, electrolyte abnormalities, colitis and diverticulitis Initial Plan: --CBC --CMP --Lipase --Magnesium --Phosphorus --PTT --PT --VBG --Troponin --Protonix Inj 40 mg IVP --Zofran 8 mg IVP --Toradol 15 mg IV --NS IV --UA 00:00 Patient to be signed out to Dr. Vaca pending full ER workup and disposition. Scribe Attestation: Documented by Jennifer Chilel acting as a scribe for Sita Carty MD Provider Scribe Attestation: All medical record entries made by the Scribe were at my direction and personally dictated by me. I have reviewed the chart and agree that the record accurately reflects my personal performance of the history, physical exam, medical decision making, and the department course for this patient. I have also personally directed, reviewed, and agree with the discharge instructions and disposition. Disposition - Clinical Impression Clinical Impression: Gastroenteritis - Patient ED Disposition Is Patient to be Admitted: Transfer of Care - Disposition Disposition: Transfer of Care Disposition Time: 00:00 Condition: IMPROVED Prescriptions: Ondansetron [Zofran] 4 mg PO Q6H PRN #4 tab PRN Reason: Nausea/Vomiting Instructions: Gastroenteritis (ED) Forms: [employer] (Vietnamese) Patient Signed Over To: Priyank Vaca
[2018-08-08 23:50] LABS: EOS % 0.3 % (0.0-4.0); HEMOGLOBIN 12.1 g/dL (12.0-16.0); LYMPH # 1.4 K/uL (1.0-4.3); LYMPH % 49.5 % (20.0-40.0); MEAN CELL VOLUME 70.4 fl (81.0-99.0); MEAN CORPUSCULAR HEMOGLOBIN 22.2 pg (27.0-31.0); MEAN CORPUSCULAR HGB CONC 31.6 g/dL (33.0-37.0); MEAN PLATELET VOLUME 10.2 fl (7.2-11.7); MONO # 0.3 K/uL (0.0-0.8); NEUT % 37.2 % (50.0-75.0); NRBC % 2.1 % (0.0-0.0); RBC 5.44 Mil/uL (3.80-5.20); RED CELL DISTRIBUTION WIDTH 16.5 % (11.5-14.5); WHITE BLOOD COUNT 2.7 K/uL (4.8-10.8)
[2018-08-08 23:55] LABS: ALB/GLOB RATIO 1.2 (1.0-2.1); ALBUMIN 4.5 g/dL (3.5-5.0); ALT/SGPT 45 U/L (9-52); AST/SGOT 38 U/L (14-36); BLOOD UREA NITROGEN 18 mg/dl (7-17); CALCIUM 9.4 mg/dL (8.4-10.2); GFR NON-AFRICAN AMERICAN > 60; LIPASE 50 U/L (23-300); PROTHROMBIN TIME 11.4 Seconds (9.8-13.1)
[2018-08-08 23:56] LABS: PARTIAL THROMBOPLASTIN TIME 27.8 Seconds (25.6-37.1)
--- NOTE | 2018-08-09 00:24 | ED PDOC ---
- Laboratory Results Result Diagrams: 08/08/18 23:40 08/08/18 23:40 Lab Results: pO2 46 mm/Hg (30-55) 08/08/18 23:08 VBG pH 7.47 (7.32-7.43) H 08/08/18 23:08 VBG pCO2 37 mmHg (40-60) L 08/08/18 23:08 VBG HCO3 27.1 mmol/L 08/08/18 23:08 VBG Total CO2 28.0 mmol/L (22-28) 08/08/18 23:08 VBG O2 Sat (Calc) 85.7 % (40-65) H 08/08/18 23:08 VBG Base Excess 3.2 mmol/L (0.0-2.0) H 08/08/18 23:08 VBG Potassium 3.2 mmol/L (3.6-5.2) L 08/08/18 23:08 Sodium 135.0 mmol/L (132-148) 08/08/18 23:08 Chloride 103.0 mmol/L (98-107) 08/08/18 23:08 Glucose 143 mg/dL (65-105) H 08/08/18 23:08 Lactate 1.2 mmol/L (0.7-2.1) 08/08/18 23:08 FiO2 21.0 % 08/08/18 23:08 PT 11.4 Seconds (9.8-13.1) 08/08/18 23:40 INR 1.0 08/08/18 23:40 APTT 27.8 Seconds (25.6-37.1) 08/08/18 23:40 Troponin I < 0.0120 ng/mL (0.00-0.120) 08/08/18 23:40 Total Bilirubin 0.4 mg/dl (0.2-1.3) 08/08/18 23:40 AST 38 U/L (14-36) H D 08/08/18 23:40 ALT 45 U/L (9-52) 08/08/18 23:40 Alkaline Phosphatase 64 U/L (38-126) 08/08/18 23:40 Total Protein 8.2 G/DL (6.3-8.2) 08/08/18 23:40 Albumin 4.5 g/dL (3.5-5.0) 08/08/18 23:40 Globulin 3.7 gm/dL (2.2-3.9) 08/08/18 23:40 Albumin/Globulin Ratio 1.2 (1.0-2.1) 08/08/18 23:40 Lipase 50 U/L (23-300) 08/08/18 23:40 - ECG O2 Sat by Pulse Oximetry: 99 (RA) Pulse Ox Interpretation: Normal Medical Decision Making Medical Decision Makin:00 --Patient signed out to this provider by Dr. Carty pending full ER workup and disposition. 02:20 --Reevaluated patient and discussed results. Informed patient that her glucose was elevated and that she had low potassium levels. Given 20 meq of potassium. --Patient reports complete improvement of symptoms. Will follow up with Dr. Newman in 1-2 days. --- Scribe Attestation: Documented by Jennifer Chilel acting as a scribe for Priyank Vaca MD Provider Scribe Attestation: All medical record entries made by the Scribe were at my direction and personally dictated by me. I have reviewed the chart and agree that the record accurately reflects my personal performance of the history, physical exam, medical decision making, and the department course for this patient. I have also personally directed, reviewed, and agree with the discharge instructions and disposition. Disposition - Clinical Impression Clinical Impression: Gastroenteritis - POA Present On Arrival: None - Disposition Disposition: Routine/Home Disposition Time: 02:20 Condition: IMPROVED Prescriptions: Ondansetron [Zofran] 4 mg PO Q6H PRN #4 tab PRN Reason: Nausea/Vomiting Instructions: Gastroenteritis (ED) Forms: [employer] (Kyrgyz)
[2018-08-09] MEDS ORDERED: Potassium Chloride 20 mEq ER Tab PO ONE ×2 (00:26→00:31)
[2018-08-09 02:35] VITALS: BP 112/68
--- NOTE | 2018-08-09 09:59 | CARD ---
APPROVED REPORT Date of service: 08/08/2018 EKG Measurement Heart [id number] <Conclusion> Sinus bradycardia Otherwise normal ECG
== END 2018-08-09 02:28 | disposition home or self-care (01) ==
LOC: H.ER 22:03
DX: K52.9 Noninfective gastroenteritis and colitis, unspecified (principal); E11.9 Type 2 diabetes mellitus without complications; F32.9 Major depressive disorder, single episode, unspecified; I10 Essential (primary) hypertension; M81.0 Age-related osteoporosis without current pathological fracture; Z79.84 Long term (current) use of oral hypoglycemic drugs
CPT/HCPCS: 80053; 82803; 82948; 83690; 83735; 84100; 84484; 85025; 85610; 85730; 93005; 96374; 96375; 99283; C9113; J1885; J2405; J7030